=== PATIENT | female | born 1980 | race African-American/Black ===

== ENCOUNTER 2020-02-15 18:22 | Emergency (ER) | payer OTHER ==
[~2020-02-15] VITALS: Ht 149.9 cm; Wt 59.0 kg
[2020-02-15] MEDS ORDERED: KETO10TA2 PO (21:43)
[2020-02-15] MEDS ORDERED: BACTRIM DS TAB1 EACH PO (21:43)
== END 2020-02-15 22:44 | disposition home or self-care (01) ==
LOC: ER 18:22
DX: N61.1 Abscess of the breast and nipple (principal)

== ENCOUNTER 2020-04-21 06:42 | Outpatient (CLI) | payer OTHER ==
[~2020-04-21 06:42] MED LIST: BACTRIM DS TAB1 EACH PO; KETO10TA2 PO
== END 2020-04-21 07:01 | disposition home or self-care (01) ==
LOC: LAB 06:42
DX: D68.8 Other specified coagulation defects (principal)

== ENCOUNTER 2021-02-13 07:11 | Emergency (ER) | payer OTHER ==
[~2021-02-13] VITALS: Ht 149.9 cm; Wt 54.4 kg
== END 2021-02-13 11:58 | disposition home or self-care (01) ==
LOC: ER 07:11
DX: U07.1 COVID-19 (principal)

== ENCOUNTER 2022-08-27 14:03 | Outpatient (CLI) | payer OTHER | END 2022-08-27 15:15 | disposition home or self-care (01) | LOC: PRENATAL 14:03 | PROVIDERS: ATTEND Obstetrics & Gynecology Maternal & Fetal Medicine | DX: Z53.21 Procedure and treatment not carried out due to patient leaving prior to being seen by health care provider (principal) ==

== ENCOUNTER 2022-09-17 13:44 | Outpatient (CLI) | payer OTHER | END 2022-09-17 15:00 | disposition home or self-care (01) | LOC: PRENATAL 13:44 | PROVIDERS: ATTEND Obstetrics & Gynecology Maternal & Fetal Medicine | DX: O35.9XX0 Maternal care for (suspected) fetal abnormality and damage, unspecified, not applicable or unspecified (principal); O35.3XX0 Maternal care for (suspected) damage to fetus from viral disease in mother, not applicable or unspecified; Z3A.19 19 weeks gestation of pregnancy ==

== ENCOUNTER 2022-12-16 10:53 | Outpatient (CLI) | payer OTHER | END 2022-12-16 12:27 | disposition home or self-care (01) | LOC: PRENATAL 10:53 | PROVIDERS: ATTEND Obstetrics & Gynecology Maternal & Fetal Medicine | DX: O26.849 Uterine size-date discrepancy, unspecified trimester (principal); O36.8199 Decreased fetal movements, unspecified trimester, other fetus; O09.529 Supervision of elderly multigravida, unspecified trimester; O24.419 Gestational diabetes mellitus in pregnancy, unspecified control; Z3A.32 32 weeks gestation of pregnancy ==

== ENCOUNTER 2023-01-11 12:09 | Outpatient (CLI) | payer OTHER | END 2023-01-11 13:25 | disposition home or self-care (01) | LOC: PRENATAL 12:09 | PROVIDERS: ATTEND Obstetrics & Gynecology Maternal & Fetal Medicine | DX: O26.849 Uterine size-date discrepancy, unspecified trimester (principal); O36.8199 Decreased fetal movements, unspecified trimester, other fetus; O09.529 Supervision of elderly multigravida, unspecified trimester; O24.419 Gestational diabetes mellitus in pregnancy, unspecified control; Z3A.36 36 weeks gestation of pregnancy ==

== ENCOUNTER 2023-01-31 10:44 | Outpatient (CLI) | payer OTHER | END 2023-01-31 11:05 | disposition home or self-care (01) | LOC: NST 10:44 | PROVIDERS: ATTEND Obstetrics & Gynecology | DX: Z34.83 Encounter for supervision of other normal pregnancy, third trimester (principal) ==